=== PATIENT | male | born 2000 | race Two or more races ===

== ENCOUNTER 2024-12-17 09:45 | Outpatient (RCR) | payer MEDICAID, SELFPAY | END 2024-12-27 23:59 | disposition home or self-care (01) | LOC: CPTX 09:45 | PROVIDERS: PCP Student in an Organized Health Care Education/Training Program; Referring Provider Student in an Organized Health Care Education/Training Program; Visit Provider Student in an Organized Health Care Education/Training Program | DX: Z53.8 Procedure and treatment not carried out for other reasons (principal) ==

== ENCOUNTER 2025-01-27 13:35 | Outpatient (RCR) | payer MEDICAID, SELFPAY ==
--- NOTE | 2025-01-27 14:10 | PT.OIERPT ---
PT OP Initial Eval Patient Information Outpatient Physical Therapy Treatment Date: 01/27/25 Visit Reasons: low back pain Medical Diagnosis: M54.50 M54.16 Treatment Dx #1: LBP with radiculopathy Start of Care: 01/27/25 Date of Onset: 4 months ago Smoking Status Smoking Status: Former smoker Initial Assessment Subjective: Pt is 24 yr old male who reports LBP x1 yr after lifting something heavy and R LE pain x4 months. Increased pain with bending and prolonged walking the R LE cramps up and hurts. Currently not having back pain but he is having R LE pain. PMH: none reported Imaging: Xray of L/S in EMR Mild to moderate disc narrowing L5-S1 Pt goal: to get rid of the pain to be able to walk normally Objective: Trunk ArOM: ? B SB 50% of normal with pain ? Extension: 20% with pain around L4-5, L5-S1 ? Flexion: 10 from floor with LBP ? B rotation: 60% with pain ? TTP: moderate paraspinals L5-S1 ? Neuro: R SLR: positive Assessment: Pt presents with trunk flexion sensitivity and overlying myofascial pain ? and TTP around L5-S1 consistent with ? lower lumbar disc bulge(s) with radiculopathy. Pt requires skilled therapy in order to decrease ? pain and improve sitting/standing tolerance and has fair rehab potential. Eval ?followed by HEP printout. [employer] Goals 1. Ind with HEP ? 2. Improved sitting/standing tolerance to 30 minutes with <=4/10 LBP ? 3. Decreased R LE pain x50% 4. Improved ambulatory tolerance x community distances with <=3/10 LBP and R LE pain Treatment Plan 1. Manual therapy ? 2. Therex ? 3. Modalities as indicated, moist heat, ice, estim, mechanical traction Frequency and Duration: 1-2x a week for 36 visits plus evaluation Certification Dates: 01/27/25 to 04/28/25 Procedure Charges OP PT Eval Mod Complex 30 minutes: Yes
== END 2025-02-26 23:59 | disposition home or self-care (01) ==
LOC: CPTX 13:35
PROVIDERS: PCP Student in an Organized Health Care Education/Training Program; Referring Provider Student in an Organized Health Care Education/Training Program; Visit Provider Student in an Organized Health Care Education/Training Program
DX: M54.16 Radiculopathy, lumbar region (principal)
CPT/HCPCS: 97162